=== PATIENT | female | born 1985 | race American Indian/Alaskan Native ===

== ENCOUNTER 2016-04-19 17:28 | Inpatient (IN) | payer OTHER ==
[2016-04-19] MEDS ORDERED: CATAPRES PO ONE (18:43)
[2016-04-19] MEDS ORDERED: MOTRIN PO ONE (20:59)
[2016-04-19 21:24] LABS: Basophils % (Auto) 0.9 % (0.0-1.8); Eosinophils % (Auto) 0.6 % (0.0-4.3); Hematocrit 35.4 % (30.3-42.9); Hemoglobin 10.8 gm/dl (10.1-14.3); Mean Corpuscular HGB Conc 31 % (30-34); Mean Corpuscular Volume 83 fl (79-97); Platelet Count 273 K/mm3 (140-440); Red Blood Count 4.26 M/mm3 (3.65-5.03); Red Cell Distribution Width 19.9 % (13.2-15.2); White Blood Count 7.2 K/mm3 (4.5-11.0)
[2016-04-19 21:33] LABS: Mean Corpuscular Hemoglobin 25 pg (28-32)
[2016-04-19 21:49] LABS: Alanine Aminotransferase 73 units/L (7-56); Albumin 3.4 g/dL (3.9-5); Albumin/Globulin Ratio 0.9 %; Alkaline Phosphatase 143 units/L (35-129); Bilirubin,Total 1.4 mg/dL (0.1-1.2); Blood Urea Nitrogen 5 mg/dL (7-17); Calcium 6.2 mg/dL (8.4-10.2); Carbon Dioxide 29 mmol/L (22-30); Chloride 97.2 mmol/L (98-107); Glucose 90 mg/dL (65-100); Sodium 143 mmol/L (137-145); Total Protein 7.3 g/dL (6.3-8.2)
[2016-04-19 21:54] LABS: Anion Gap 20 mmol/L
[2016-04-19 21:56] LABS: Potassium 2.8 mmol/L (3.6-5.0)
[2016-04-19] MEDS ORDERED: NACL 0.9% 1000 ML 1,000 ML IV ONE (22:03)
[2016-04-19] MEDS ORDERED: APRESOLINE IV ONE (22:03)
[2016-04-19] MEDS ORDERED: K-DUR PO ONE (22:04)
[2016-04-19 23:30] LABS: Bilirubin,Urine NEG (Negative); Blood,Urine LG (Negative); Ketones,Urine NEG (Negative); Leukocyte Esterase,Urine SM (Negative); Nitrite,Urine NEG (Negative)
[2016-04-19 23:31] LABS: RBC,Urine > 182.0 /HPF (0.0-6.0)
[2016-04-19 23:42] LABS: Albumin 3.6 g/dL (3.9-5); Albumin/Globulin Ratio 0.9 %; Bilirubin,Direct 0.7 mg/dL (0-0.2); Bilirubin,Indirect 0.7 mg/dL; Bilirubin,Total 1.4 mg/dL (0.1-1.2); Total Protein 7.4 g/dL (6.3-8.2)
--- NOTE | 2016-04-20 00:03 | XRay Report ---
FINAL REPORT PROCEDURE: XR CHEST ROUTINE 2V TECHNIQUE: PA and lateral chest radiographs were obtained. CPT 20519 HISTORY: cough COMPARISON: No prior studies are available for comparison. FINDINGS: Heart: The heart size is slightly pronounced. Mediastinum/Vessels: Normal. Lungs/Pleural space: Normal. Bony thorax: No acute osseous abnormality. Other: IMPRESSION: No evidence of acute infiltrate or effusion. Borderline cardiomegaly..
[2016-04-20] MEDS ORDERED: CALCIUM GLUCONATE 1,000 MG in NACL 0.9% 100 ML IV ONE ×2 (00:25→00:36)
--- NOTE | 2016-04-20 00:28 | Emergency Department Report ---
HPI - General Chief Complaint: Upper Respiratory Infection Time Seen by Provider: 04/19/16 20:43 - HPI HPI: Room 31 The patient is a 30-year-old female presenting with a chief complaint of cough. The patient states she's had a cough productive of sputum for 1 month. Patient admits to sinus drainage and rhinorrhea. Patient denies any history of fever. Patient states the cough has been "messing" with her throat. Patient states her roommate was diagnosed with influenza this morning so she came in for evaluation. Patient is admitted to short nausea and vomiting ED Past Medical Hx - Past Medical History Previous Medical History?: No - Surgical History Past Surgical History?: No - Social History Smoking Status: Never Smoker Substance Use Type: None ED Review of Systems ROS: Stated complaint: SORE THROAT/COUGH/CONGESTION Other details as noted in HPI Physical Exam - Physical Exam Vital Signs: Vital Signs 04/19/16 04/19/16 04/19/16 18:37 18:48 20:49 Temperature 98.2 F Pulse Rate 109 H 109 H 111 H Respiratory 20 16 Rate Blood Pressure 220/132 220/132 Blood Pressure 197/133 [Left] O2 Sat by Pulse 98 95 Oximetry 04/19/16 04/19/16 23:03 23:42 Temperature Pulse Rate 111 H 80 Respiratory 16 Rate Blood Pressure 197/113 Blood Pressure 184/117 [Left] O2 Sat by Pulse 95 Oximetry ED Course Vital Signs 04/19/16 04/19/16 04/19/16 18:37 18:48 20:49 Temperature 98.2 F Pulse Rate 109 H 109 H 111 H Respiratory 20 16 Rate Blood Pressure 220/132 220/132 Blood Pressure 197/133 [Left] O2 Sat by Pulse 98 95 Oximetry 04/19/16 04/19/16 23:03 23:42 Temperature Pulse Rate 111 H 80 Respiratory 16 Rate Blood Pressure 197/113 Blood Pressure 184/117 [Left] O2 Sat by Pulse 95 Oximetry ED Medical Decision Making - Lab Data Result diagrams: 04/19/16 21:15 04/19/16 21:15 Critical care attestation.: If time is entered above; I have spent that time in minutes in the direct care of this critically ill patient, excluding procedure time. ED Disposition Condition: Stable
[2016-04-20] MEDS ORDERED: BACTRIM DS PO ONE (00:30)
--- NOTE | 2016-04-20 00:38 | Emergency Department Report ---
HPI - General Chief Complaint: Upper Respiratory Infection Time Seen by Provider: 04/19/16 20:43 - HPI HPI: Room 31 The patient is a 30-year-old female presenting with a chief complaint of cough. Patient states she's had a cough for 1 month has been productive of sputum. Patient admits to rhinorrhea and shortness of breath. Patient states she had sinus drainage as well. The patient states last week her cough began "messing" with her throat. Patient states she had a scratchy throat and shortness of breath. Patient does admit to nausea and vomiting. Her roommate was diagnosed with influenza this morning so she came for evaluation Location: [see above] Duration: One month Quality: Scratchy Severity: Moderate Modifying factors: Unknown Context: [see above] Mode of transportation: [not driving] ED Past Medical Hx - Past Medical History Previous Medical History?: No - Surgical History Past Surgical History?: No - Family History Family history: no significant - Social History Smoking Status: Current Every Day Smoker (one pack per day) Substance Use Type: None (denies illicit drug use), Alcohol (daily) ED Review of Systems ROS: Stated complaint: SORE THROAT/COUGH/CONGESTION Other details as noted in HPI Comment: All other systems reviewed and negative Constitutional: denies: chills, fever Eyes: denies: eye pain, eye discharge, vision change ENT: congestion Respiratory: cough, shortness of breath Cardiovascular: denies: chest pain, palpitations Endocrine: no symptoms reported Gastrointestinal: nausea, vomiting Genitourinary: denies: urgency, dysuria, discharge Musculoskeletal: denies: back pain, joint swelling, arthralgia Skin: denies: rash, lesions Neurological: denies: headache, weakness, paresthesias Psychiatric: denies: anxiety, depression Hematological/Lymphatic: denies: easy bleeding, easy bruising Physical Exam - Physical Exam Vital Signs: Vital Signs 04/19/16 04/19/16 04/19/16 18:37 18:48 20:49 Temperature 98.2 F Pulse Rate 109 H 109 H 111 H Respiratory 20 16 Rate Blood Pressure 220/132 220/132 Blood Pressure 197/133 [Left] O2 Sat by Pulse 98 95 Oximetry 04/19/16 04/19/16 23:03 23:42 Temperature Pulse Rate 111 H 80 Respiratory 16 Rate Blood Pressure 197/113 Blood Pressure 184/117 [Left] O2 Sat by Pulse 95 Oximetry Physical Exam: GENERAL: The patient is well-developed well-nourished female lying on stretcher not appearing to be in acute distress. [] HEENT: Normocephalic. Atraumatic. Extraocular motions are intact. Patient has moist mucous membranes. Nasal congestion. No pharyngeal erythema seen NECK: Supple. Trachea midline CHEST/LUNGS: Clear to auscultation. There is no respiratory distress noted. Frequent coughing HEART/CARDIOVASCULAR: Regular. There is tachycardia. There is no gallop rub or murmur. ABDOMEN: Abdomen is soft, nontender. Patient has normal bowel sounds. There is no abdominal distention. SKIN: There is no rash. There is no edema. There is no diaphoresis. NEURO: The patient is awake, alert, and oriented. The patient is cooperative. The patient has no focal neurologic deficits. The patient has normal speech MUSCULOSKELETAL: There is no evidence of acute injury. ED Course Vital Signs 04/19/16 04/19/16 04/19/16 18:37 18:48 20:49 Temperature 98.2 F Pulse Rate 109 H 109 H 111 H Respiratory 20 16 Rate Blood Pressure 220/132 220/132 Blood Pressure 197/133 [Left] O2 Sat by Pulse 98 95 Oximetry 04/19/16 04/19/16 23:03 23:42 Temperature Pulse Rate 111 H 80 Respiratory 16 Rate Blood Pressure 197/113 Blood Pressure 184/117 [Left] O2 Sat by Pulse 95 Oximetry ED Medical Decision Making - Lab Data Result diagrams: 04/19/16 21:15 04/19/16 21:15 Laboratory Tests 04/19/16 04/19/16 04/19/16 21:15 21:15 21:15 WBC 7.2 RBC 4.26 Hgb 10.8 Hct 35.4 MCV 83 MCH 25 L MCHC 31 RDW 19.9 H Plt Count 273 Lymph % (Auto) 19.2 [place] % (Auto) 6.1 Eos % (Auto) 0.6 Baso % (Auto) 0.9 Lymph # 1.4 [place] # 0.4 Eos # 0.0 Baso # 0.1 Seg Neutrophils % 73.2 H Seg Neutrophils # 5.2 Sodium 143 Potassium 2.8 L* Chloride 97.2 L Carbon Dioxide 29 Anion Gap 20 BUN 5 L Creatinine 0.4 L Estimated GFR > 60 BUN/Creatinine Ratio 12.50 Glucose 90 Calcium 6.2 L Total Bilirubin 1.4 H 1.4 H Direct Bilirubin 0.7 H Indirect Bilirubin 0.7 AST 212 H 218 H ALT 73 H 74 H Alkaline Phosphatase 143 H 146 H Troponin T < 0.010 Total Protein 7.3 7.4 Albumin 3.4 L 3.6 L Albumin/Globulin Ratio 0.9 0.9 Urine Color Urine Turbidity Urine pH Ur Specific [place] Urine Protein Urine Glucose (UA) Urine Ketones Urine Blood Urine Nitrite Urine Bilirubin Urine Urobilinogen Ur Leukocyte Esterase Urine WBC (Auto) Urine RBC (Auto) U Epithel Cells (Auto) 04/19/16 23:05 WBC RBC Hgb Hct MCV MCH MCHC RDW Plt Count Lymph % (Auto) [place] % (Auto) Eos % (Auto) Baso % (Auto) Lymph # [place] # Eos # Baso # Seg Neutrophils % Seg Neutrophils # Sodium Potassium Chloride Carbon Dioxide Anion Gap BUN Creatinine Estimated GFR BUN/Creatinine Ratio Glucose Calcium Total Bilirubin Direct Bilirubin Indirect Bilirubin AST ALT Alkaline Phosphatase Troponin T Total Protein Albumin Albumin/Globulin Ratio Urine Color Red Urine Turbidity Cloudy Urine pH 7.0 Ur Specific [place] 1.011 Urine Protein 30 mg/dl Urine Glucose (UA) Neg Urine Ketones Neg Urine Blood Lg Urine Nitrite Neg Urine Bilirubin Neg Urine Urobilinogen 2.0 Ur Leukocyte Esterase Sm Urine WBC (Auto) 85.0 H Urine RBC (Auto) > 182.0 U Epithel Cells (Auto) 5.0 - EKG Data -: EKG Interpreted by Me EKG shows normal: sinus rhythm Rate: tachycardia (114 bpm) - EKG Data When compared to previous EKG there are: previous EKG unavailable Interpretation: nonspecific ST-T wave coleman - Radiology Data Radiology results: image reviewed (chest x-ray) interpreted by me: Chest x-ray-no focal infiltrates, no pneumothorax - Differential Diagnosis pneumonia, influenza, Critical care attestation.: If time is entered above; I have spent that time in minutes in the direct care of this critically ill patient, excluding procedure time. ED Disposition Clinical Impression: Hypocalcemia, Hypokalemia, Cough, Shortness of breath, Tachycardia Disposition: OP ADMITTED IP TO THIS HOSP Is pt being admited?: Yes Does the pt Need Aspirin: Yes Condition: Fair Time of Disposition: 00:42 (hospitalist notified)
--- NOTE | 2016-04-20 01:06 | Ultrasound Report ---
FINAL REPORT PROCEDURE: US ABDOMEN LIMITED TECHNIQUE: Real-time sonography was performed of the gallbladder with image documentation. CPT 29013 HISTORY: elevated bili and LFT COMPARISON: No prior studies are available for comparison. FINDINGS: The liver is slightly enlarged. The liver is fatty infiltrated. Gallbladder lumen is normal. The gallbladder wall thickness is normal at 1 millimeter. The common bile duct is normal measuring 2.7 millimeters. The portions of the right kidney and pancreas imaged are normal.. IMPRESSION: Mild hepatomegaly and fatty infiltration of the liver. The gallbladder is normal. The common bile duct is normal and measures 2.7 millimeters.
--- NOTE | 2016-04-20 07:21 | Admit Criteria Form ---
Admission Criteria Documentation: HYPONATREMIA; HYPERNATREMIA; HYPOKALEMIA; HYPERKALEMIA; HYPOCALCEMIA; HYPERCALCEMIA Clinical Indications for Inpatient Care (Place 'X' for any and all applicable criteria): Ongoing inpatient care may be indicated for ANY ONE of the following [G](1)(2)(3 )(5): [ ]I. Hyponatremia with ANY ONE of the following: [ ]a) Sodium less than 130 mEq/L (mmol/L) (new) (6)(22) [ ]b) Sodium less than 135 mEq/L (mmol/L) with ANY ONE of the following: [ ]i) Severe medical etiology requiring inpatient management (eg, heart failure, hypovolemia) [ ]ii) Altered mental status [ ]iii) Seizures [ ]II. Hypernatremia with ANY ONE of the following: [ ]a) Sodium greater than 155 mEq/L (mmol/L) [ ]b) Sodium greater than 150 mEq/L (mmol/L) with ANY ONE of the following: [ ] i) Altered mental status [ ]ii) Seizures [ ]iii) Severe medical etiology (eg, hypovolemia, diabetes insipidus) [ ]iv) Severe weakness [ ]v) Severe medical etiology (eg, hemolysis, infection, drug overdose) [X ]III. Hypokalemia with ANY ONE of the following: [ ]a) Potassium less than 2.5 mEq/L (mmol/L) despite outpatient and emergency treatment [ X]b) Potassium less than 3.0 mEq/L (mmol/L) with ANY ONE of the following: [ X]i) Weakness [ ]ii) Cardiac abnormality (eg, arrhythmia, conduction disturbance) [ ]iii) Cardiac ischemia [ ]iv) Ileus [ ]v) Ongoing medical cause requiring inpatient management. ( e.g., acute renal wasting, SIADH) [X ]vi) Other severe symptoms [ ] IV. Hyperkalemia with ANY ONE of the following: [ ]a) Potassium greater than 6.5 mEq/L (mmol/L) [ ]b) Potassium greater than 5 mEq/L (mmol/L) with ANY ONE of the following: [ ]i) Severe ECG findings [H] [ ]ii) Acute worsening of renal failure (creatinine greater than 2.5 mg/dL (221 micromoles/L) or significant elevation for age and size) [ ] V. Hypocalcemia with ANY ONE of the following: [ ]a) Calcium less than 7 mg/dL (1.75 mmol/L) despite outpatient and emergency treatment(19) [ ]b) Calcium less than 8 mg/dL (2 mmol/L) with significant symptoms or findings; examples include: [ ]i) Cardiac abnormality (eg, arrhythmia or conduction disturbance) [ ]ii) Altered mental status [ ]iii) Seizures [ ]iv) Breathing difficulty [ ]v) Muscle spasms [ ]. Hypercalcemia with ANY ONE of the following: [ ]a) Calcium greater than 14 mg/dL (3.5 mmol/L) [ ]b) Calcium greater than 12 mg/dL (3 mmol/L) with ANY ONE of the following: [ ]i) Significant dehydration or hypovolemia as indicated by ANY ONE of the following(2): [ ]1. Clinically significant dehydration as indicated by ANY ONE of the following: [ ]A. Acute loss of weight from baseline (5% of body weight in adults, 9% in pediatric patients) [ ]B. Hemodynamic instability [ ]C. Acute renal failure [ ]D. Serum sodium greater than 150 mEq/L (mmol/L) [ ]2) Dehydration that is persistent indicated by ALL of the following: [ ]A. Oral rehydration therapy not tolerated or insufficient to adequately correct dehydration [ ]B. Appropriate intravenous treatment (eg, fluids ) does not readily correct dehydration ie, after 12 to 24 hours of treatment) [ ]ii) Significant symptoms or findings; examples include: [ ]1) Altered mental status [ ]2) Cardiac abnormality (eg, arrhythmia, conduction disturbance) [ ]3) Cardiac abnormality (eg, arrhythmia, conduction disturbance) The original [employer] content created by [employer] has been revised. The portions of the content which have been revised are identified through the use of italic text or in bold, and [facility] has neither reviewed nor approved the modified material. All other unmodified content is copyright [facility] Please see references footnoted in the original [employer] edition 2016 Admission Criteria Met: Yes
--- NOTE | 2016-04-20 09:41 | Event Note ---
Date: 04/20/16 See H/p in reports Hypokalemia Hypocalcemia Acute viral syndrome UTI
[2016-04-20] MEDS ORDERED: PERCOCET 5/325 PO PRN (09:44)
[2016-04-20] MEDS ORDERED: DULCOLAX PR PRN (09:44)
[2016-04-20] MEDS ORDERED: ZOFRAN IV PRN (09:44)
[2016-04-20] MEDS ORDERED: MILK OF MAGNESIA PO PRN (09:44)
[2016-04-20] MEDS ORDERED: TYLENOL PO PRN (10:00)
[2016-04-20] MEDS ORDERED: D5NS 1,000 ML IV SCH (10:00)
[2016-04-20] MEDS: KCL 10MEQ/100ML 100 ML IV SCH ×4 (10:26→14:00)
[2016-04-20] MEDS: K-DUR PO SCH ×3 (10:33→16:50)
[2016-04-20] MEDS: LOVENOX SUB-Q SCH (10:34)
[2016-04-20 10:41] LABS: Alanine Aminotransferase 56 units/L (7-56); Albumin/Globulin Ratio 0.9 %; Alkaline Phosphatase 120 units/L (35-129); Anion Gap 21 mmol/L; Bilirubin,Total 2.2 mg/dL (0.1-1.2); Blood Urea Nitrogen 7 mg/dL (7-17); Calcium 6.1 mg/dL (8.4-10.2); Carbon Dioxide 26 mmol/L (22-30); Glucose 95 mg/dL (65-100); Sodium 144 mmol/L (137-145); Total Protein 6.5 g/dL (6.3-8.2)
[2016-04-20] MEDS ORDERED: CALCIJEX IV ONE (11:00)
[2016-04-20] MEDS ORDERED: DILAUDID IV PRN (11:00)
[2016-04-20] MEDS: COREG PO SCH ×2 (11:13→21:35)
[2016-04-20] MEDS: COZAAR PO SCH (11:51)
[2016-04-20] MEDS ORDERED: KCL 10MEQ/100ML 100 ML IV ONE ×2 (11:52→14:04)
[2016-04-20] MEDS: ROCEPHIN/NS 2 GM/100 ML 100 ML IV SCH (13:48)
[2016-04-20] MEDS ORDERED: ATIVAN IV PRN ×2 (15:08)
[2016-04-20] MEDS ORDERED: HALDOL IV PRN (15:08)
[2016-04-20 16:32] LABS: Phosphorous 3.2 mg/dL (2.5-4.5)
[2016-04-20 17:09] LABS: Magnesium 0.6 mg/dL (1.7-2.3)
[2016-04-20] MEDS ORDERED: MAGNESIUM SULFATE 2GM/50ML 50 ML IV ONE (17:11)
--- NOTE | 2016-04-20 17:48 | History and Physical Report ---
CHIEF COMPLAINT: Cough for one month. Also, weakness for one month. HISTORY OF PRESENT ILLNESS: A 30-year-old female who presents with a chief complaint of cough for one month and also some shortness of breath. The patient's roommate had influenza and the patient was worried about influenza being contracted and hence came for evaluation. The patient admits to nausea and vomiting couple of times for the last 2 days. No diarrhea. No fever, no chills. Has sore throat and cough. PAST MEDICAL HISTORY: None. PAST SURGICAL HISTORY: None. FAMILY HISTORY: Not significant. SOCIAL HISTORY: Smokes about a pack a day. Alcohol on a daily basis. No marijuana, no drugs. REVIEW OF SYSTEMS: Significant for feeling weak. Nausea and vomiting 2 to 3 times. Also, urgency and dysuria is present. Denies any headache, weakness, paresthesias. A 14-point review of systems is otherwise negative. PHYSICAL EXAMINATION: GENERAL: Young female, cooperative during examination. VITAL SIGNS: Temperature is 98.2, pulse is 109, respirations are 20, blood pressure is 220/132. Repeat one is 184/117. Sats are 95%. HEENT: Unremarkable. Pupils equal and reactive. NECK: Supple, no lymphadenopathy, no thyromegaly. LUNGS: Clear to auscultation and percussion. Good air entry. CARDIOVASCULAR: S1, S2 heard. No gallop, no murmur, no rub. Apical impulse in left fifth intercostal space and midclavicular line. ABDOMEN: Soft and benign. No hepatosplenomegaly. No guarding, no rigidity. Hernial orifices are normal. EXTREMITIES: Good pedal pulses. No pedal edema. CENTRAL NERVOUS SYSTEM: Alert and oriented x 4, nonfocal exam. LABORATORY DATA: White count is 7200, H and H is 10.8 and 35.4, platelet count is 273,000. Sodium is 143, potassium is 2.8, chloride is 97.2. BUN and creatinine is 5 and 0.4. Calcium is 6.2 low, total bilirubin is 1.4, AST is 218, ALT is 74. Urine shows white blood cells over 85. Chest x-ray. This has bruises noted to have acute infiltrate or effusion. Abdominal ultrasound shows mild hepatomegaly and fatty infiltration of liver. Gallbladder is normal. The common bile duct is normal. In summary, the labs were significant for potassium of 2.8 and calcium of 6.2 and elevated LFTs in the form of AST being 218, ALT being 74, and total bilirubin being 1.4, and urine wbc's being 85. ASSESSMENT AND PLAN: 1. Acute severe hypokalemia, being supplemented. IV potassium and p.o. potassium. 2. Hypocalcemia, reason not known. The patient does not have any ____ parathyroid hormone and thyroid profile ordered. 3. Acute hepatitis. We will get acute hepatitis profile. The patient takes alcohol on a regular basis. Alcohol may be the cause of increased transaminitis. 4. Urinary tract infection. The patient has white cells of 85. Rocephin to be continued. Rocephin 2 g was started. 5. Deep venous thrombosis prophylaxis, Lovenox 40 mg subcutaneous daily. In summary, the patient has hypokalemia, hypocalcemia, transaminitis, and urinary tract infection. JOB# [id number] YAS/JAZ
[2016-04-21] MEDS ORDERED: CLARITIN PO ONE (01:25)
[2016-04-21] MEDS: APRESOLINE IV PRN (05:52)
[2016-04-21 09:15] LABS: Alanine Aminotransferase 48 units/L (7-56); Albumin 3.3 g/dL (3.9-5); Albumin/Globulin Ratio 0.9 %; Alkaline Phosphatase 129 units/L (35-129); Anion Gap 19 mmol/L; Bilirubin,Total 1.4 mg/dL (0.1-1.2); Blood Urea Nitrogen 8 mg/dL (7-17); Calcium 6.1 mg/dL (8.4-10.2); Carbon Dioxide 25 mmol/L (22-30); Chloride 99.4 mmol/L (98-107); Glucose 115 mg/dL (65-100); Potassium 3.4 mmol/L (3.6-5.0); Sodium 140 mmol/L (137-145); Total Protein 6.9 g/dL (6.3-8.2)
[2016-04-21 10:01] LABS: Basophils % (Auto) 0.5 % (0.0-1.8); Hematocrit 33.2 % (30.3-42.9); Hemoglobin 10.1 gm/dl (10.1-14.3); Mean Corpuscular HGB Conc 31 % (30-34); Mean Corpuscular Volume 84 fl (79-97); Platelet Count 250 K/mm3 (140-440); Red Blood Count 3.96 M/mm3 (3.65-5.03); White Blood Count 7.1 K/mm3 (4.5-11.0)
[2016-04-21 10:04] LABS: Mean Corpuscular Hemoglobin 26 pg (28-32); Red Cell Distribution Width 20.2 % (13.2-15.2)
[2016-04-21] MEDS: COREG PO SCH ×2 (10:40→22:05)
[2016-04-21] MEDS: LOVENOX SUB-Q SCH (10:41)
[2016-04-21] MEDS: COZAAR PO SCH (10:41)
[2016-04-21] MEDS ORDERED: AUGMENTIN 875 MG PO SCH (13:00)
--- NOTE | 2016-04-21 13:23 | Progress Note ---
Assessment and Plan Assessment and plan: Patient is a 30-year-old female presented to the hospital with complaint of cough for about a month and some shortness of breath although she tells me done today so weak that she has had chronic sinus problems for more than 3 months. Presentation to the hospital she was noted to have severe hypokalemia and severe hypomagnesemia with endorsing a history of alcohol use 3-4 glasses daily. Also with elevated liver enzymes hepatitis profile checked and was negative. * Acute dyspnea now resolving rule out strep throat rule out bronchitis * We'll start patient on empiric antibiotic with Augmentin also had gentle steroids due to the hoarseness. I've discussed this with the patient and we'll also send off for strep throat rule out. I doubt that this is an infectious process but will monitor closely. Patient has not had any fever white count is normal. * Severe electrolyte abnormalities including hypocalcemia, hypomagnesemia, hypokalemia * Will replace electrolytes. This is likely from alcohol use. Patient in no acute withdrawal at this point. * Urinary tract infection * We'll discontinue Rocephin and continue on Augmentin. Patient was previously treated at an outside hospital. We'll follow urine culture * Hyperbilirubinemia * Likely secondary to abuse ultrasound does not show any acute pathology will monitor and expect resolution. * Transaminitis * As noted above * Hoarsness * Improving, pt tolerating diet, no tenderness in the neck area. no hot potato voice * Morbid obesity * Discussed lifestyle modification with patient she verbalizes understanding * Moderate protein calorie malnutrition * encouraged proper po intake, etoh playing a role * Fatty liver * Signed and discussed with the patient in detail what secondary to alcohol use. She verbalized understanding * Alcohol abuse * 15 minutes spent discharging discussed with patient need to desist from alcohol use patient verbalized understanding local resources provided to the patient including AA * DVT and GI prophylaxis History Interval history: Patient seen and examined this morning in no acute distress, very patient very irate this morning no one is listening to her. Does not understand why everyone is so focused on her liver rather than the strep throat she believes she has. She reports chronic sinus problems greater than 3 months. Reports change in the voice with cough for about a week. Denies any chest pain, nausea, vomiting, diarrhea No fever noted blood pressure controlled No adverse events reported to me by nursing staff Hospitalist Physical - Physical exam Narrative exam: VITAL SIGNS: Reviewed. GENERAL: The patient appeared well nourished and normally developed, obese, hoarse voice.. Vital signs as documented. HEAD: No signs of head trauma. EYES: Pupils are equal. Extraocular motions intact. EARS: Hearing grossly intact. MOUTH: Unable to properly visualize both tonsil area due to neck size. Otherwise the upper part about stable to visualize did not show any erythema. NECK: No adenopathy, no JVD. CHEST: Chest with clear breath sounds bilaterally. No wheezes, rales, or rhonchi. CARDIAC: Regular rate and rhythm. S1 and S2, without murmurs, gallops, or rubs. VASCULAR: No Edema. Peripheral pulses normal and equal in all extremities. ABDOMEN: Soft, without detectable tenderness. No sign of distention. No rebound or guarding, and no masses palpated. Bowel Sounds normal. MUSCULOSKELETAL: Good range of motion of all major joints. Extremities without clubbing, cyanosis or edema. NEUROLOGIC EXAM: Alert and oriented x 3. No focal sensory or strength deficits. Speech normal. Follows commands. PSYCHIATRIC: Mood normal. SKIN: No rash or lesions. - Constitutional Vitals: Temp Pulse Resp BP Pulse Ox 98.2 F 94 H 18 138/82 98 04/21/16 12:00 04/21/16 12:00 04/21/16 12:00 04/21/16 12:00 04/21/16 10:00 Results - Labs CBC & Chem 7: 04/21/16 07:55 04/21/16 07:55 Labs: Laboratory Last Values WBC 7.1 K/mm3 (4.5-11.0) 04/21/16 07:55 RBC 3.96 M/mm3 (3.65-5.03) 04/21/16 07:55 Hgb 10.1 gm/dl (10.1-14.3) 04/21/16 07:55 Hct 33.2 % (30.3-42.9) 04/21/16 07:55 MCV 84 fl (79-97) 04/21/16 07:55 MCH 26 pg (28-32) L 04/21/16 07:55 MCHC 31 % (30-34) 04/21/16 07:55 RDW 20.2 % (13.2-15.2) H 04/21/16 07:55 Plt Count 250 K/mm3 (140-440) 04/21/16 07:55 Lymph % (Auto) 21.8 % (13.4-35.0) 04/21/16 07:55 [place] % (Auto) 6.2 % (0.0-7.3) 04/21/16 07:55 Eos % (Auto) 1.0 % (0.0-4.3) 04/21/16 07:55 Baso % (Auto) 0.5 % (0.0-1.8) 04/21/16 07:55 Lymph # 1.5 K/mm3 (1.2-5.4) 04/21/16 07:55 [place] # 0.4 K/mm3 (0.0-0.8) 04/21/16 07:55 Eos # 0.1 K/mm3 (0.0-0.4) 04/21/16 07:55 Baso # 0.0 K/mm3 (0.0-0.1) 04/21/16 07:55 Seg Neutrophils % 70.5 % (40.0-70.0) H 04/21/16 07:55 Seg Neutrophils # 5.0 K/mm3 (1.8-7.7) 04/21/16 07:55 Sodium 140 mmol/L (137-145) 04/21/16 07:55 Potassium 3.4 mmol/L (3.6-5.0) L 04/21/16 07:55 Chloride 99.4 mmol/L (98-107) 04/21/16 07:55 Carbon Dioxide 25 mmol/L (22-30) 04/21/16 07:55 Anion Gap 19 mmol/L 04/21/16 07:55 BUN 8 mg/dL (7-17) 04/21/16 07:55 Creatinine 0.5 mg/dL (0.7-1.2) L 04/21/16 07:55 Estimated GFR > 60 ml/min 04/21/16 07:55 BUN/Creatinine Ratio 16.00 % 04/21/16 07:55 Glucose 115 mg/dL (65-100) H 04/21/16 07:55 Calcium 6.1 mg/dL (8.4-10.2) L 04/21/16 07:55 Phosphorus 3.2 mg/dL (2.5-4.5) 04/20/16 10:04 Magnesium 0.6 mg/dL (1.7-2.3) L* 04/20/16 10:04 Total Bilirubin 1.4 mg/dL (0.1-1.2) H 04/21/16 07:55 Direct Bilirubin 0.7 mg/dL (0-0.2) H 04/19/16 21:15 Indirect Bilirubin 0.7 mg/dL 04/19/16 21:15 AST 121 units/L (5-40) H 04/21/16 07:55 ALT 48 units/L (7-56) 04/21/16 07:55 Alkaline Phosphatase 129 units/L (35-129) 04/21/16 07:55 Ammonia 29.0 umol/L (25-60) 04/20/16 15:38 Troponin T < 0.010 ng/mL (0.00-0.029) 04/19/16 21:15 Total Protein 6.9 g/dL (6.3-8.2) 04/21/16 07:55 Albumin 3.3 g/dL (3.9-5) L 04/21/16 07:55 Albumin/Globulin Ratio 0.9 % 04/21/16 07:55 Lipase 15 units/L (13-60) 04/20/16 10:04 TSH 2.300 mlU/mL (0.270-4.200) 04/20/16 10:04 PTH Intact 40.00 pg/mL (15-65) 04/20/16 10:04 Urine Color Red (Yellow) 04/19/16 23:05 Urine Turbidity Cloudy (Clear) 04/19/16 23:05 Urine pH 7.0 (5.0-7.0) 04/19/16 23:05 Ur Specific [place] 1.011 (1.003-1.030) 04/19/16 23:05 Urine Protein 30 mg/dl mg/dL (Negative) 04/19/16 23:05 Urine Glucose (UA) Neg mg/dL (Negative) 04/19/16 23:05 Urine Ketones Neg mg/dL (Negative) 04/19/16 23:05 Urine Blood Lg (Negative) 04/19/16 23:05 Urine Nitrite Neg (Negative) 04/19/16 23:05 Urine Bilirubin Neg (Negative) 04/19/16 23:05 Urine Urobilinogen 2.0 mg/dL (<2.0) 04/19/16 23:05 Ur Leukocyte Esterase Sm (Negative) 04/19/16 23:05 Urine WBC (Auto) 85.0 /HPF (0.0-6.0) H 04/19/16 23:05 Urine RBC (Auto) > 182.0 /HPF (0.0-6.0) 04/19/16 23:05 U Epithel Cells (Auto) 5.0 /HPF (0-13.0) 04/19/16 23:05 Hepatitis A IgM Ab Nonreactive (NonReactive) 04/20/16 10:04 Hep Bs Antigen Non-reactive (Negative) 04/20/16 10:04 Hep B Core IgM Ab Non-reactive (NonReactive) 04/20/16 10:04 Hepatitis C Antibody Non-reactive (NonReactive) 04/20/16 10:04 - Imaging and Cardiology US - abdomen: image reviewed (fatty liver infiltration with a personal review)
[2016-04-22 06:20] LABS: Hematocrit 31.2 % (30.3-42.9); Hemoglobin 9.6 gm/dl (10.1-14.3); Mean Corpuscular HGB Conc 31 % (30-34); Mean Corpuscular Volume 84 fl (79-97); Platelet Count 239 K/mm3 (140-440); Red Blood Count 3.73 M/mm3 (3.65-5.03); White Blood Count 6.6 K/mm3 (4.5-11.0)
[2016-04-22 06:24] LABS: Mean Corpuscular Hemoglobin 26 pg (28-32); Red Cell Distribution Width 20.1 % (13.2-15.2)
[2016-04-22] MEDS: APRESOLINE IV PRN (06:33)
[2016-04-22 06:45] LABS: Alanine Aminotransferase 38 units/L (7-56); Albumin 3.2 g/dL (3.9-5); Alkaline Phosphatase 116 units/L (35-129); Bilirubin,Total 1.1 mg/dL (0.1-1.2); Blood Urea Nitrogen 7 mg/dL (7-17); Calcium 6.1 mg/dL (8.4-10.2); Carbon Dioxide 28 mmol/L (22-30); Glucose 102 mg/dL (65-100); Potassium 3.3 mmol/L (3.6-5.0); Sodium 142 mmol/L (137-145); Total Protein 6.4 g/dL (6.3-8.2)
[2016-04-22 06:50] LABS: Anion Gap 16 mmol/L
[2016-04-22] MEDS ORDERED: DELTASONE PO SCH (10:00)
[2016-04-22] MEDS: ROCEPHIN/NS 2 GM/100 ML 100 ML IV SCH ×2 (10:03→10:24)
[2016-04-22] MEDS: COREG PO SCH (10:04)
[2016-04-22] MEDS: COZAAR PO SCH (10:04)
[2016-04-22] MEDS: LOVENOX SUB-Q SCH (10:05)
[2016-04-22] MEDS: AUGMENTIN 875 MG PO SCH ×2 (10:23→10:25)
--- NOTE | 2016-04-22 11:47 | Discharge Summary ---
Providers - Providers Date of Admission: 04/20/16 11:31 Date of discharge: 04/22/16 Attending physician: ELIZABETH LÓPEZ MD Primary care physician: CISCO ADMINISTRATOR Hospitalization Condition: Stable Hospital course: Patient is a 30-year-old female presented to the hospital with complaint of cough for about a month and some shortness of breath although she tells me done today so weak that she has had chronic sinus problems for more than 3 months. Presentation to the hospital she was noted to have severe hypokalemia and severe hypomagnesemia with endorsing a history of alcohol use 3-4 glasses daily. Also with elevated liver enzymes hepatitis profile checked and was negative. On admission the patient was started on steroids and antibiotics with good improvement. Strep throat culture was sent. Leukocytosis was noted. Speech improved with the hoarseness resolving. Electrolytes and LFTs resolved. Extensive counseling about 50 minutes was spent with the patient will need to quit alcohol use patient verbalized understanding we did provide resources to assist the patient with this. Discharge Diagnosis * Acute dyspnea * Bronchitis * Severe electrolyte abnormalities including hypocalcemia, hypomagnesemia, hypokalemia * Urinary tract infection * Hyperbilirubinemia * Hypertension * Transaminitis * Hoarsness * Morbid obesity * Moderate protein calorie malnutrition * Fatty liver * Alcohol abuse Disposition: DISCHARGED TO HOME OR SELFCARE Time spent for discharge: 35 mins Core Measure Documentation - Palliative Care Palliative Care/ Comfort Measures: Not Applicable - Core Measures Any of the following diagnoses?: none - VTE Discharge Requirements Deep Vein Thrombosis/Pulmonary Embolism Present on Admission: No Exam - Physical Exam Narrative exam: VITAL SIGNS: Reviewed. GENERAL: The patient appeared well nourished and normally developed, obese, . Vital signs as documented. HEAD: No signs of head trauma. EYES: Pupils are equal. Extraocular motions intact. EARS: Hearing grossly intact. MOUTH: Unable to properly visualize both tonsil area due to neck size. Otherwise the upper part about stable to visualize did not show any erythema. NECK: No adenopathy, no JVD. CHEST: Chest with clear breath sounds bilaterally. No wheezes, rales, or rhonchi. CARDIAC: Regular rate and rhythm. S1 and S2, without murmurs, gallops, or rubs. VASCULAR: No Edema. Peripheral pulses normal and equal in all extremities. ABDOMEN: Soft, without detectable tenderness. No sign of distention. No rebound or guarding, and no masses palpated. Bowel Sounds normal. MUSCULOSKELETAL: Good range of motion of all major joints. Extremities without clubbing, cyanosis or edema. NEUROLOGIC EXAM: Alert and oriented x 3. No focal sensory or strength deficits. Speech normal. Follows commands. PSYCHIATRIC: Mood normal. SKIN: No rash or lesions. - Constitutional Vitals: Temp Pulse Resp BP Pulse Ox 98.3 F 104 H 18 153/83 91 04/22/16 09:10 04/22/16 09:10 04/22/16 09:10 04/22/16 09:10 04/22/16 09:10 Plan Activity: advance as tolerated, fall precautions Diet: low cholesterol Special Instructions: record daily BP diary Follow up with: PRIMARY CARE, [Primary Care Provider] - 3-5 Days Prescriptions: Amoxicillin/K Clav Tab [Augmentin 875MG TAB] 1 each PO Q12H #16 tablet Losartan [Cozaar] 100 mg PO QDAY #30 tablet predniSONE [Deltasone] 20 mg PO QDAY #10 tablet Hydrochlorothiazide [HCTZ] 25 mg PO QDAY #30 tablet oxyCODONE /ACETAMINOPHEN [Percocet 5/325 mg] 1 tab PO Q6H PRN #12 tablet PRN Reason: Pain, Moderate (4-6)
[2016-04-22] MEDS ORDERED: APRESOLINE IV PRN ×3 (12:30→13:57)
[2016-04-22 14:21] VITALS: BP 173/109
== END 2016-04-22 14:50 | disposition home or self-care (01) | DRG 202 ==
LOC: ED 17:28 → 4A 04-20 11:31
PROVIDERS: ADMIT Internal Medicine; ATTEND Internal Medicine
DX: J40 Bronchitis, not specified as acute or chronic (principal); N39.0 Urinary tract infection, site not specified; E44.0 Moderate protein-calorie malnutrition; Z68.41 Body mass index [BMI] 40.0-44.9, adult; E87.6 Hypokalemia; E83.51 Hypocalcemia; F17.200 Nicotine dependence, unspecified, uncomplicated; E83.42 Hypomagnesemia; E80.6 Other disorders of bilirubin metabolism; R74.0 Nonspecific elevation of levels of transaminase and lactic acid dehydrogenase [LDH]; R49.0 Dysphonia; E66.01 Morbid (severe) obesity due to excess calories; F10.10 Alcohol abuse, uncomplicated; K76.0 Fatty (change of) liver, not elsewhere classified; R06.00 Dyspnea, unspecified; I10 Essential (primary) hypertension; D72.829 Elevated white blood cell count, unspecified
CPT/HCPCS: 36415; 71020; 76705; 80053; 80074; 81001; 82140; 83690; 83735; 83970; 84100; 84443; 84484; 85025; 85027; 87116; 87400; 87430; 93005; 93010; 96361; 96365; 96366; 96368; 96375; J0360; J0610; J0636; J0696; J1650; J3475; J3480; J7030; J7042; J7512